=== PATIENT | male | born 1990 | race Caucasian/White ===

== ENCOUNTER 2022-01-08 02:10 | Emergency (ER) | payer OTHER, BC ==
[~2022-01-08] VITALS: Ht 182.9 cm; Wt 79.4 kg
[2022-01-08] MEDS ORDERED: PERCOCET 5-3251 EACH PO (03:59)
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
== END 2022-01-08 05:05 | disposition home or self-care (01) ==
LOC: ED 02:10
DX: S32.029A Unspecified fracture of second lumbar vertebra, initial encounter for closed fracture (principal); V89.2XXA Person injured in unspecified motor-vehicle accident, traffic, initial encounter
CPT/HCPCS: 36415; 71250; 72125; 72128; 72131; 74176; 80053; 85025; 90471; 90715; 96374; 96375; 99284-25; J1170; J2270; J2405; J7030